=== PATIENT | female | born 1980 | race Two or more races ===

== ENCOUNTER 2016-12-13 20:40 | Emergency (ER) | payer BC ==
[2016-12-13] MEDS ORDERED: TETRACAINE HCL 0.5% OPHTH SOLN 4ML BOTTLE ONE (20:56)
[2016-12-13] MEDS ORDERED: Fluorescein Sodium 1 mg Ophth Strip ONE (21:09)
[2016-12-13] MEDS: Fluorescein Sodium 1 mg Ophth Strip EACH EYE ONE (21:32)
[2016-12-13] MEDS: Tetracaine 0.5% Ophth Soln 15 mL Soln EACH EYE ONE (21:33)
--- NOTE | 2016-12-13 21:37 | ED Physician Chart ---
Chief Complaint/HPI - Patient Information Date Seen:: 12/13/16 Time Seen:: 20:40 Chief Complaint:: contacts stuck in eyes History of Present Illness:: Patient just got new contact lenses for the first time, and now states that they are stuck in her eyes. The patient has vigorously tried to remove the contact lenses from her eyes but cannot do so. The patient states that she definitely has the contacts still in her eyes. Patient states she knows this because she can see distant objects. Allergies:: Allergies Allergy/AdvReac Type Severity Reaction Status Date / Time No Known Allergies Allergy Verified 12/13/16 20:52 Vitals:: Vital Signs - 8 hr 12/13/16 20:42 Temp 98.1 F HR 86 RR 18 BP 149/87 O2 Sat % 98 Review of Systems - Review of Systems General/Constitutional: Other (all other systems were reviewed and are otherwise negative for acute symptomatology) Past Medical History - Past Medical History Past Medical History: No significant medical hx, Other (first time contact lenses user today) Social History: Non Smoker, Psychiatricy History: None Medication: None Family Medical History - Family Member Mother Living Status: Still Living Hx Family Hypertension: Yes Hx Family Diabetes: Yes Physical Exam - Physical Examination General/Constitutional: Awake, Well-developed, well-nourished, Alert, No distress, GCS 15, Non-toxic appearing, Ambulatory Eyes: Lids, conjuctiva normal, PERRL, EOMI Other Eyes comments:: Bilateral examination of the eyes does not reveal the obvious presence of contact lenses. A Howell lamp with the medication was used and the contact lenses could not be seen. The patient insists that her vision is improved and therefore the contact lenses must be in. Tetracaine with fluorescein were instilled in both eyes and contacts were not seen anywhere in the eye including under both lids of both eyes. There was a small corneal abrasion of the lateral aspect of the right eye secondary to patient self instrumentation with her fingers in attempts to remove contact lenses that were no longer there. Upon informing the patient that the contact lenses were not present, she repeated assessment of her vision in each eye for distance followed by wearing her distance glasses and now realizes that contacts cannot be in place. Skin: Nl inspection, No skin lesions ED Septic Shock - . Is Septic Shock (SBP<90, OR Lactate>4 mmol\L) present?: No - <6hrs of presentation: Vital Signs: Vital Signs - 8 hr 12/13/16 20:42 Temp 98.1 F HR 86 RR 18 BP 149/87 O2 Sat % 98 Reassessment (Disposition) - Reassessment Reassessment Condition:: Improved - Diagnosis Diagnosis:: #1. Right corneal abrasion, minor. #2. History of contact lens use with accidental dislodgment unknown to the patient. - Aftercare/Follow up Instructions Aftercare/Follow-Up Instructions:: Refer to Discharge Instructions, Counseled pt & family regarding lab results/diagnosis & need follow up Notes:: Patient was informed of all aspects of care and participated in the evaluation of her eye implant and vision assessment and understands the nature of shallow corneal abrasion and the need for strict I rest for 8-24 hours with reevaluation if the eye is not perfect in vision, appearance, and sensation in 24 hours. - Patient Disposition Discharge/Transfer:: Home Condition at Disposition:: Improved ED Discharge Plan - Patient Disposition Admit/Discharge/Transfer: PT DISCHARGED HOME Condition at Disposition: Improved Instructions: Eye - Corneal Abrasion, [id number] Additional Instructions: check for any redness, pain, blurred vision, return to er for worsening symptoms.
== END 2016-12-13 21:40 | disposition home or self-care (01) ==
LOC: ER 20:40
DX: S05.01XA Injury of conjunctiva and corneal abrasion without foreign body, right eye, initial encounter (principal); X58.XXXA Exposure to other specified factors, initial encounter; Y93.89 Activity, other specified; Y92.89 Other specified places as the place of occurrence of the external cause; Y99.8 Other external cause status
CPT/HCPCS: Z7502